=== PATIENT | male | born 1930 | race Caucasian/White ===

== ENCOUNTER 2017-01-21 06:02 | Day surgery (SDC) | payer MEDICARE ==
[2017-01-20 12:07] LABS: EOSINOPHILS 4.2 % (0-7); HEMATOCRIT 40.4 % (42.0-54.0); HEMOGLOBIN 13.2 g/dL (13.5-17.5); IMMATURE GRANULOCYTES 0.2 % (0-5); LYMPHOCYTES 26.4 % (15-50); MCH 30.1 pg (26.0-34.0); MCHC 32.7 g/dL (31.0-37.0); MCV 92.2 fL (80.0-100.0); MEAN PLATELET VOLUME 10.9 fL (7.4-10.4); MONOCYTES 8.1 % (2-11); NEUTROPHILS 60.1 % (40-80); PLATELET COUNT 167 10x3/uL (130-400); RBC 4.38 10x6/uL (4.20-6.10); RDW 13.6 % (11.5-14.5); WBC 6.2 10x3/uL (4.8-10.8)
[2017-01-20 12:16] LABS: APTT 30.3 SECONDS (22.8-39.4)
[2017-01-20 12:17] LABS: INR 1.07 (0.85-1.17); PROTIME 13.7 SECONDS (11.6-15.0)
[2017-01-20 12:19] LABS: ANION GAP 10.4 mmol/L (8-16); CALCIUM 9.7 mg/dL (8.5-10.1); CARBON DIOXIDE 28.9 mmol/L (21.0-32.0); CREATININE - SERUM 1.5 mg/dL (0.6-1.3); POTASSIUM - SERUM 4.3 mmol/L (3.5-5.1)
[~2017-01-21] VITALS: Ht 188 cm; Wt 88.0 kg
[2017-01-21 05:56] VITALS: BP 149/83; Ht 188 cm; Wt 88.0 kg
[~2017-01-21 06:02] MED LIST: ASPIRIN EC81 M1 PO; CARDURA8 MG PO; FISH OIL 1,0001 CA1 PO; KENALOG 0.1 % 115 GM TOPICAL; MULTIPLE VITAMI1 TA1 PO; NORVASC5 MG PO; PRINIVIL20 MG PO; STOOL SOFTENER100 M1 PO; ZOCOR40 MG PO
[2017-01-21] MEDS ORDERED: HYDROCODONE-APA1 TAB PO (09:06)
--- NOTE | 2017-01-21 09:46 | NUR ---
0940 FL DIET SERVED. 0945 NORCO 10MG PO GIVEN FOR C/O PAIN 02/05 AND REQUEST FOR PAIN PILL.
--- NOTE | 2017-01-28 14:52 | OP ---
PATIENT NAME: DAVID STEVEN MEDICAL RECORD: [id number] :[birth year] LOCATION:D.OPS ADMISSION DATE: SURGEON: BRETT EILZALDE MD DATE OF OPERATION: 01/21/2017 PREOPERATIVE DIAGNOSES: 1. 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 2. Peripheral venous insufficiency. 3. Gastroesophageal reflux disease. 4. Hypertension. 5. Hyperlipidemia. 6. Chronic renal failure. 7. Congestive heart failure undifferentiated. POSTOPERATIVE DIAGNOSES: 1. 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 2. Peripheral venous insufficiency. 3. Gastroesophageal reflux disease. 4. Hypertension. 5. Hyperlipidemia. 6. Chronic renal failure. 7. Congestive heart failure undifferentiated. PROCEDURE: Wide local excision of right anterior ankle squamous cell carcinoma. SURGEON: Brett Elizalde MD REPORT OF PROCEDURE: The patient's right lower extremity was prepped and draped in sterile fashion. We marked an area around this squamous cell carcinoma on the anterior right ankle. We made a longitudinal ovoid incision. The incision length was 6 cm. The incision width was 3 cm. We came through the subcutaneous tissues and there was a large vein that was passing underneath the tissue. This was ligated on each end with 3-0 silk ties. We then took the tissue off of the patient's fascia and after marking the specimen, it was sent off for frozen section. The lateral and medial margins were inspected and it showed that the margins were clear of any tumor. We then irrigated out the wound and undermined the tissue in all directions. The tissue had been stretched and held in place during the frozen section with towel clips. At this point, we were able to reapproximate the edges of the incision using vertical mattress 3-0 nylon. Multiple sutures were used and we were able to completely close the incision longitudinally. The wound was then dressed with Betadine ointment, Adaptic, 4 x 4's, and Kerlix. COMPLICATIONS: None. CONDITION: Stable. ANESTHESIA: General endotracheal. BLOOD LOSS: Minimal. TRANSINT:[id number] Voice Confirmation ID: [id number] DOCUMENT ID: [id number] OPERATIVE REPORT [id number] DAVID STEVEN BRETT ELIZALDE MD at 1452 CC: JAVIER BLANKENSHIP MD and SHABBIR MATA MD [id number] DICTATION DATE: 01/21/17917 FANCY STITCHER: 01/21/17 1653 [facility] 01/21/17 [facility] [address] [facility] [place] [address]
== END 2017-01-21 10:55 | disposition home or self-care (01) ==
LOC: D.OPS 06:02
PROVIDERS: Anesthesiology; Surgery
DX: C44.712 Basal cell carcinoma of skin of right lower limb, including hip (principal); I87.2 Venous insufficiency (chronic) (peripheral); K21.9 Gastro-esophageal reflux disease without esophagitis; E78.5 Hyperlipidemia, unspecified; I13.0 Hypertensive heart and chronic kidney disease with heart failure and stage 1 through stage 4 chronic kidney disease, or unspecified chronic kidney disease; N18.9 Chronic kidney disease, unspecified; I50.9 Heart failure, unspecified

== ENCOUNTER 2017-07-16 19:31 | Emergency (ER) | payer MEDICARE ==
[2017-01-21 05:56] VITALS: BMI 24.9
[~2017-07-16 19:31] MED LIST changes: +HYDROCODONE-APA1 TAB PO
== END 2017-07-16 23:25 | disposition home or self-care (01) ==
LOC: D.ER 19:31
DX: L03.115 Cellulitis of right lower limb (principal); D48.7 Neoplasm of uncertain behavior of other specified sites

== ENCOUNTER → 2017-07-30 18:42 | Outpatient (CLI) | payer MEDICARE ==
[2017-01-21 05:56] VITALS: BMI 24.9
[~2017-07-30 18:42] MED LIST changes: +ARICEPT5 MG PO; +DILAUD1MGAMP IV; +HYDROCODON-ACE1 EAC7 PO; +PROSCAR5 MG PO; +VALIUM 2 MG TAB2 MG PO
== END | disposition home or self-care (01) ==
LOC: D.LABREF 18:42
DX: S81.802A Unspecified open wound, left lower leg, initial encounter (principal); X58.XXXA Exposure to other specified factors, initial encounter; Y93.89 Activity, other specified; Y92.029 Unspecified place in mobile home as the place of occurrence of the external cause

== ENCOUNTER 2017-10-17 18:56 | Inpatient (IN) | payer MEDICARE ==
[~2017-10-17] VITALS: Ht 188 cm; Wt 86.2 kg
--- NOTE | ~2017-10-17 | OP ---
PATIENT NAME: DAVID REID MEDICAL RECORD: [id number] :[birth year] LOCATION:D.MS [place] ADMISSION DATE:10/17/17 SURGEON: CUONG SOUZA, DATE OF OPERATION: 10/22/2017 PROCEDURE PERFORMED: Left Humerus intramedullary nail. PREOPERATIVE DIAGNOSIS: Closed left humeral shaft fracture. POSTOPERATIVE DIAGNOSIS: Closed left humeral shaft fracture. INDICATIONS: Mr. Reid is a right hand dominant male that presented to the ER Parminder night after falling and fracturing his left humerus. Inability that he go home and take care of himself, so he was admitted. He is also complaining of hip pain. Subsequent MRIs were done of his hips, which showed some bony abnormalities. We had a elin discussion with him that his left humerus we could brace it and watch it and see if it would heal. During his stay in the hospital, he said he got tired of the humerus not being stable and bothering him, not been able to move without it hurting and said that he wanted it fixed. After having this discussion with him, the risks and benefits of the procedure were explained to him. I explained to him that I try a nail due to his age and the fact that it has smaller incisions and a quicker surgery, generally over the plate and due to his bone quality it may be better, so decided to do a nail. After noting this, he consented to the procedure. SURGEON: Cuong Souza DO COMPLICATIONS: None. BLOOD LOSS: Approximately 50 mL. DESCRIPTION OF THE PROCEDURE: The patient received a block in the preoperative area and taken to the operative suite and laid in supine position, given general anesthetic and Ancef. LMA was placed and the patient was placed in beach chair position. After this was done, the left upper extremity was prepped and draped in sterile fashion. Timeout was performed, everyone was in agreement of correct side, site and patient. After the time-out was performed, incision was made over the acromion laterally. Careful dissection was made down to the deltoid which was split. Fibers were split down to the bursa. The bursa was removed off the rotator cuff and the rotator cuff was encountered. A starting point was then found with starting tracie with a starting wire and the rotator cuff was split in line with the fibers and the starting wire was put down the humerus. The opening reamer was used at that point. Once the opening reamer was used, a long guidewire was placed. A reduction was made which was difficult to hold and we reamed to an 8 which went down very smoothly and decided to put an 8 nail down. We then switched out the guidewire to a smooth guidewire due to the compression device of the Jbphh nail. Once the nail was then put down over that and the reduction was held, a distal locking screw was put in place from the anterior to posterior. A alistair was made in the skin, right over the bicep and it was carefully split with a hemostat down to the anterior humerus and then the guide soft tissue protector was put down on the humerus and perfect circles were made for the drill hole and then the drill was put in through the distal AP hole in the nail. Once this was locked, we went proximally and put in the dynamic slot screw and then the compression screw from the top of the nail was turned and compression was made at the fracture site not getting a perfect reduction; OPERATIVE REPORT [id number] DAVID REID however, the cortices were touching. Once this was done, we then put one more static screw and above the dynamic screw at the proximal part of the humerus. After this was done, x-rays were taken to confirm adequate reduction of the humerus and the most proximal screw was not in the joint and the humeral nail was down below the rotator cuff and below the humerus. Irrigation was then done and the rotator cuff was closed with a ftduvt-cy-ohdcl stitch of #2 Ethibond and a deltoid fascia was then closed with 0 Vicryl and 2 [id number] stitches and skin was closed with 3-0 Vicryl at the longer incision sites and then 4-0 Monocryl was run on the skin there. The other poke holes where the screws were inserted were closed with 4-0 Monocryl distally in a horizontal mattress pattern due to the thin skin and then proximally inverted interrupted and then the arm was cleaned and put in Dermabond over each incision sites and Telfa and Tegaderm were placed over each of the incisions. The arm was then wrapped with an Nomi from the hand up and put in a sling. The patient was awakened and taken to recovery in stable condition. TRANSINT:[id number] Voice Confirmation ID: [id number] DOCUMENT ID: [id number] CUONG SOUZA DO at 1621 CC: [id number] DICTATION DATE: 10/22/17 1554 APPLE PACKING HEADER: 10/22/17 2150 ADM IN [facility] [address] [place] [id number]
[~2017-10-17 18:56] MED LIST changes: -ARICEPT5 MG PO; -DILAUD1MGAMP IV; -HYDROCODON-ACE1 EAC7 PO; -PROSCAR5 MG PO; -VALIUM 2 MG TAB2 MG PO
[2017-10-17 21:25] LABS: BASOPHILS 0.4 % (0-2); EOSINOPHILS 0.6 % (0-7); HEMATOCRIT 40.4 % (42.0-54.0); HEMOGLOBIN 13.3 g/dL (13.5-17.5); IMMATURE GRANULOCYTES 0.3 % (0-5); LYMPHOCYTES 8.6 % (15-50); MCH 30.2 pg (26.0-34.0); MCHC 32.9 g/dL (31.0-37.0); MCV 91.6 fL (80.0-100.0); MEAN PLATELET VOLUME 10.6 fL (7.4-10.4); MONOCYTES 4.3 % (2-11); NEUTROPHILS 85.8 % (40-80); PLATELET COUNT 153 10x3/uL (130-400); RBC 4.41 10x6/uL (4.20-6.10); RDW 13.4 % (11.5-14.5); WBC 10.5 10x3/uL (4.8-10.8)
[2017-10-17 21:33] LABS: ANION GAP 15.1 mmol/L (8-16); CALCIUM 9.6 mg/dL (8.5-10.1); CARBON DIOXIDE 26.5 mmol/L (21.0-32.0); CREATININE - SERUM 1.4 mg/dL (0.6-1.3); POTASSIUM - SERUM 3.6 mmol/L (3.5-5.1)
[2017-10-18 00:06] VITALS: BP 171/98; BMI 24.4
[2017-10-18] MEDS ORDERED: VALIUM 2 MG TAB2 MG PO (00:42)
[2017-10-18] MEDS ORDERED: DILAUD1MGAMP IV (00:44)
[2017-10-18 08:04] VITALS: BP 167/92
[2017-10-18 08:22] LABS: BASOPHILS 0.3 % (0-2); EOSINOPHILS 2.2 % (0-7); HEMATOCRIT 36.7 % (42.0-54.0); HEMOGLOBIN 12.1 g/dL (13.5-17.5); IMMATURE GRANULOCYTES 0.2 % (0-5); LYMPHOCYTES 21.2 % (15-50); MCH 30.1 pg (26.0-34.0); MCV 91.3 fL (80.0-100.0); MEAN PLATELET VOLUME 10.5 fL (7.4-10.4); MONOCYTES 7.5 % (2-11); NEUTROPHILS 68.6 % (40-80); PLATELET COUNT 144 10x3/uL (130-400); RBC 4.02 10x6/uL (4.20-6.10); RDW 13.6 % (11.5-14.5)
[2017-10-18 08:31] LABS: WBC 6.4 10x3/uL (4.8-10.8)
[2017-10-18 08:35] LABS: ALBUMIN 3.1 g/dL (3.4-5.0); ANION GAP 9.8 mmol/L (8-16); BILIRUBIN - TOTAL 0.75 mg/dL (0.2-1.3); CALCIUM 9.3 mg/dL (8.5-10.1); CREATININE - SERUM 1.4 mg/dL (0.6-1.3); MAGNESIUM - SERUM 2.3 mg/dL (1.8-2.4); PHOSPHOROUS 3.5 mg/dL (2.5-4.9); POTASSIUM - SERUM 3.8 mmol/L (3.5-5.1); PROTEIN - SERUM 6.2 g/dL (6.4-8.2)
[2017-10-18 08:38] LABS: APTT 28.5 SECONDS (22.8-39.4); INR 1.11 (0.85-1.17); PROTIME 13.8 SECONDS (11.6-15.0)
[2017-10-18] MEDS ORDERED: ARICEPT5 MG PO (10:12)
[2017-10-18] MEDS ORDERED: PROSCAR5 MG PO (10:13)
[2017-10-18 12:49] VITALS: BMI 24.4
[2017-10-18 14:25] VITALS: Ht 188 cm; Wt 86.2 kg
[2017-10-18 15:39] LABS: C-REACTIVE PROTEIN 0.9 mg/dL (0.0-0.9)
[2017-10-18 15:48] VITALS: BP 137/75
[2017-10-18 16:46] LABS: ERYTHROCYTE SEDIMENTATION RATE 35 mm/hr (0-30)
[2017-10-18 20:00] VITALS: BP 153/91
[2017-10-18 23:53] VITALS: BP 131/83
[2017-10-19 04:00] VITALS: BP 134/74
[2017-10-19 06:27] LABS: BASOPHILS 0.6 % (0-2); EOSINOPHILS 3.2 % (0-7); HEMATOCRIT 34.3 % (42.0-54.0); HEMOGLOBIN 11.3 g/dL (13.5-17.5); IMMATURE GRANULOCYTES 0.1 % (0-5); MCHC 32.9 g/dL (31.0-37.0); MONOCYTES 7.5 % (2-11); NEUTROPHILS 62.6 % (40-80); PLATELET COUNT 146 10x3/uL (130-400); RBC 3.77 10x6/uL (4.20-6.10); RDW 13.8 % (11.5-14.5); WBC 7.2 10x3/uL (4.8-10.8)
[2017-10-19 06:43] LABS: ANION GAP 12.7 mmol/L (8-16); CALCIUM 8.9 mg/dL (8.5-10.1); CARBON DIOXIDE 26.7 mmol/L (21.0-32.0); CREATININE - SERUM 1.5 mg/dL (0.6-1.3); POTASSIUM - SERUM 3.4 mmol/L (3.5-5.1)
[2017-10-19 08:18] VITALS: BP 156/77
[2017-10-19 12:27] VITALS: BP 128/72
[2017-10-19 16:30] VITALS: BP 193/119
[2017-10-19 20:00] VITALS: BP 163/98
[2017-10-20 04:00] VITALS: BP 168/94
[2017-10-20 05:51] LABS: BASOPHILS 0.4 % (0-2); EOSINOPHILS 2.8 % (0-7); HEMATOCRIT 34.5 % (42.0-54.0); HEMOGLOBIN 11.2 g/dL (13.5-17.5); IMMATURE GRANULOCYTES 0.1 % (0-5); LYMPHOCYTES 21.3 % (15-50); MCH 29.9 pg (26.0-34.0); MCHC 32.5 g/dL (31.0-37.0); MEAN PLATELET VOLUME 11.1 fL (7.4-10.4); MONOCYTES 7.6 % (2-11); NEUTROPHILS 67.8 % (40-80); PLATELET COUNT 150 10x3/uL (130-400); RBC 3.75 10x6/uL (4.20-6.10); RDW 13.8 % (11.5-14.5); WBC 8.3 10x3/uL (4.8-10.8)
[2017-10-20 06:15] LABS: ANION GAP 13.1 mmol/L (8-16); CALCIUM 8.7 mg/dL (8.5-10.1); CARBON DIOXIDE 26.3 mmol/L (21.0-32.0); CREATININE - SERUM 1.5 mg/dL (0.6-1.3); POTASSIUM - SERUM 3.4 mmol/L (3.5-5.1)
[2017-10-20 08:33] VITALS: BP 171/82
[2017-10-20 12:08] VITALS: BP 124/68
[2017-10-20 15:40] VITALS: BP 118/64
[2017-10-20 20:00] VITALS: BP 148/79
[2017-10-21 04:55] LABS: BASOPHILS 0.2 % (0-2); EOSINOPHILS 2.5 % (0-7); HEMATOCRIT 32.9 % (42.0-54.0); HEMOGLOBIN 10.6 g/dL (13.5-17.5); IMMATURE GRANULOCYTES 0.1 % (0-5); LYMPHOCYTES 16.8 % (15-50); MCH 29.9 pg (26.0-34.0); MCHC 32.2 g/dL (31.0-37.0); MCV 92.9 fL (80.0-100.0); MEAN PLATELET VOLUME 10.4 fL (7.4-10.4); NEUTROPHILS 75.4 % (40-80); PLATELET COUNT 141 10x3/uL (130-400); RBC 3.54 10x6/uL (4.20-6.10); RDW 13.9 % (11.5-14.5); WBC 8.8 10x3/uL (4.8-10.8)
[2017-10-21 05:12] LABS: ALBUMIN 2.6 g/dL (3.4-5.0); BILIRUBIN - TOTAL 0.72 mg/dL (0.2-1.3); CALCIUM 8.9 mg/dL (8.5-10.1); CARBON DIOXIDE 27.9 mmol/L (21.0-32.0); CREATININE - SERUM 1.4 mg/dL (0.6-1.3); POTASSIUM - SERUM 3.9 mmol/L (3.5-5.1); PROTEIN - SERUM 5.9 g/dL (6.4-8.2)
[2017-10-21 09:29] VITALS: BP 156/79
[2017-10-21 14:18] VITALS: BP 129/56
[2017-10-22 04:00] VITALS: BP 153/85
[2017-10-22 06:17] LABS: BETA-2 MICROGLOBULIN 3.4 mg/L (0.6-2.4)
[2017-10-22 06:56] LABS: BASOPHILS 0.7 % (0-2); EOSINOPHILS 3.9 % (0-7); HEMATOCRIT 34.6 % (42.0-54.0); HEMOGLOBIN 11.1 g/dL (13.5-17.5); IMMATURE GRANULOCYTES 0.3 % (0-5); LYMPHOCYTES 19.9 % (15-50); MCH 29.6 pg (26.0-34.0); MCHC 32.1 g/dL (31.0-37.0); MCV 92.3 fL (80.0-100.0); MONOCYTES 6.4 % (2-11); NEUTROPHILS 68.8 % (40-80); PLATELET COUNT 161 10x3/uL (130-400); RBC 3.75 10x6/uL (4.20-6.10); RDW 13.7 % (11.5-14.5); WBC 7.6 10x3/uL (4.8-10.8)
[2017-10-22 07:12] LABS: SPE - A/G RATIO 1.2 (0.7-1.7); SPE - ALBUMIN 3.2 g/dL (2.9-4.4); SPE - ALPHA-1 GLOBULIN 0.2 g/dL (0.0-0.4); SPE - ALPHA-2 GLOBULIN 0.7 g/dL (0.4-1.0); SPE - BETA GLOBULIN 0.9 g/dL (0.7-1.3); SPE - GAMMA GLOBULIN 0.9 g/dL (0.4-1.8); SPE - M-SPIKE 0.2 g/dL (Not Observed); SPE - TOTAL PROTEIN 5.9 g/dL (6.0-8.5)
[2017-10-22 07:12] LABS: IMMUNOFIXATION Note: (()); IMMUNOGLOBULIN A 286 mg/dL (61-437); IMMUNOGLOBULIN G 820 mg/dL (700-1600); IMMUNOGLOBULIN M 139 mg/dL (15-143)
[2017-10-22 07:22] LABS: ALBUMIN 2.7 g/dL (3.4-5.0); ANION GAP 10.6 mmol/L (8-16); BILIRUBIN - TOTAL 0.56 mg/dL (0.2-1.3); CALCIUM 9.1 mg/dL (8.5-10.1); CREATININE - SERUM 1.3 mg/dL (0.6-1.3); POTASSIUM - SERUM 3.6 mmol/L (3.5-5.1); PROTEIN - SERUM 6.1 g/dL (6.4-8.2)
[2017-10-22 08:26] VITALS: BP 162/78
[2017-10-22 11:56] VITALS: BP 145/82
[2017-10-22 16:41] VITALS: BP 117/65
[2017-10-22 22:57] VITALS: BP 159/84
[2017-10-23 02:03] VITALS: BP 135/78
[2017-10-23 05:26] LABS: BASOPHILS 0.4 % (0-2); EOSINOPHILS 1.4 % (0-7); HEMATOCRIT 33.8 % (42.0-54.0); HEMOGLOBIN 10.9 g/dL (13.5-17.5); IMMATURE GRANULOCYTES 0.1 % (0-5); LYMPHOCYTES 11.7 % (15-50); MCH 29.7 pg (26.0-34.0); MCHC 32.2 g/dL (31.0-37.0); MCV 92.1 fL (80.0-100.0); MEAN PLATELET VOLUME 10.6 fL (7.4-10.4); MONOCYTES 7.1 % (2-11); NEUTROPHILS 79.3 % (40-80); PLATELET COUNT 146 10x3/uL (130-400); RBC 3.67 10x6/uL (4.20-6.10); RDW 13.6 % (11.5-14.5); WBC 7.1 10x3/uL (4.8-10.8)
[2017-10-23 05:50] LABS: ALBUMIN 2.6 g/dL (3.4-5.0); ANION GAP 11.2 mmol/L (8-16); BILIRUBIN - TOTAL 0.6 mg/dL (0.2-1.3); CALCIUM 8.4 mg/dL (8.5-10.1); CARBON DIOXIDE 26.9 mmol/L (21.0-32.0); CREATININE - SERUM 1.3 mg/dL (0.6-1.3); POTASSIUM - SERUM 4.1 mmol/L (3.5-5.1)
[2017-10-23 06:03] VITALS: BP 135/78
[2017-10-23 10:42] VITALS: BP 158/84
[2017-10-23 11:00] VITALS: BP 156/81
[2017-10-23] MEDS ORDERED: HYDROCODON-ACE1 EAC7 PO (16:08)
[2017-10-23 16:23] VITALS: BP 140/76
== END 2017-10-23 18:15 | DRG 478 ==
LOC: D.ER 18:56 → D.MS 23:27
PROVIDERS: Family Medicine; Internal Medicine Hematology & Oncology; Internal Medicine Nephrology; Orthopaedic Surgery; Specialist
PROC: 0QB33ZX Excision of Left Pelvic Bone, Percutaneous Approach, Diagnostic (ICD-10-PCS; 2017-10-20)
PROC: 07DR3ZX Extraction of Iliac Bone Marrow, Percutaneous Approach, Diagnostic (ICD-10-PCS; principal; 2017-10-20 13:00)
PROC: 0PSG36Z Reposition Left Humeral Shaft with Intramedullary Internal Fixation Device, Percutaneous Approach (ICD-10-PCS; 2017-10-22)
DX: S42.302A Unspecified fracture of shaft of humerus, left arm, initial encounter for closed fracture (principal); N17.9 Acute kidney failure, unspecified; S22.089A Unspecified fracture of T11-T12 vertebra, initial encounter for closed fracture; W17.89XA Other fall from one level to another, initial encounter; M25.551 Pain in right hip; I10 Essential (primary) hypertension; E78.5 Hyperlipidemia, unspecified; K21.9 Gastro-esophageal reflux disease without esophagitis; G47.33 Obstructive sleep apnea (adult) (pediatric); D64.9 Anemia, unspecified

== ENCOUNTER 2017-10-23 17:12 | Inpatient (IN) | payer MEDICARE ==
[~2017-10-23] VITALS: Ht 188 cm; Wt 85.7 kg
--- NOTE | ~2017-10-23 | RHP ---
PATIENT: DAVID STEVEN MEDICAL RECORD: [id number] ACCOUNT: [id number] LOCATION:[facility]1112 : [birth year] ADMISSION DATE: 10/23/17 REHABILITATION HISTORY AND PHYSICAL EXAMINATION POST ADMISSION PHYSICIAN EXAMINATION DATE OF ADMISSION: 10/23/2017. ADMITTING DIAGNOSES: Pain secondary to a T12 compression fracture and hip pain secondary to possible multiple myeloma. HISTORY OF PRESENT ILLNESS: The patient is admitted to the inpatient rehab for pain syndrome. He is an 86-year-old gentleman who presented to the ER via EMS with left arm pain after falling off the porch on 10/16/2017. X-rays were done that demonstrated a humeral shaft fracture. He also has right hip pain for months. He stated that he cannot take more than 2 steps without pain. He stated he has seen an orthopedic surgeon in [place] who took x-rays, which did not show any fractures at that time. He has a history of hypertension, hyperlipidemia, gastroesophageal reflux disease, benign prostatic hypertrophy, rheumatic fever as a child. MRI of his right hip showed a mottled marrow signal within the pelvis and proximal femurs, as well as the lower lumbar spine. This can be accounts receivable representative of osteoporosis or marrow infiltrating disorder such as multiple myeloma or severe anemia. He is now seeing an oncologist. He has had a bone marrow aspiration done for further testing. He has also been found to have a compression fracture at T12. He underwent a surgical repair of his humeral fracture on 10/22/2017 after a failed closed reduction. He lives at home with his and was moderately independent with mobility with use of a single point cane and now is set up for moderate to max assist. He definitely needs inpatient rehab to get back to his prior level of functioning and return home. COMORBIDITIES: Include humeral fracture, right hip pain, hypertension, hyperlipidemia, gastroesophageal reflux disease, chronic kidney disease, chronic venous insufficiency, former tobacco smoker, BPH, skin cancers, urinary frequency, falls, right hip pain, normocytic anemia, and acute kidney injury. PAST MEDICAL HISTORY: Significant for cataracts, hard of hearing, trouble swallowing, BPH, arthritis, urinary frequency, former tobacco use, hyperlipidemia, sleep apnea, basal cell skin cancer, chronic kidney disease, heart failure, gastroesophageal reflux disease, and chronic venous insufficiency. PAST SURGICAL HISTORY: Includes cataracts, appendectomy, left inguinal hernia, and left breast mass. ALLERGIES: SULFA. CURRENT MEDICATIONS: Include multivitamin daily, lisinopril 20 mg daily, omega 1 cap daily, finasteride 5 mg daily, Colace 100 mg daily, aspirin chewable 81 mg daily, amlodipine 5 mg daily. He is on simvastatin 40 mg q.h.s., Curtice 5/325 as needed for pain, Cardura 8 mg q.h.s., Aricept 5 mg q.h.s., Valium 1 mg q. 8 hours p.r.n. spasms, and polyethylene glycol 17 grams in 8 ounces of water daily as needed. HABITS: Does have a history of tobacco use. HISTORY AND PHYSICAL [id number] DAVID STEVEN FAMILY HISTORY: Noncontributory. SOCIAL HISTORY: The patient hopes to return back home and get back to his prior level of functioning. REVIEW OF SYSTEMS: GENERAL: Does complain of weakness. HEENT: He denies cold, cough, or congestion. CARDIOVASCULAR: Denies chest pain. PHYSICAL EXAMINATION: VITAL SIGNS: Stable, afebrile. GENERAL: Elderly gentleman in no acute distress, alert upon exam. HEENT: Normocephalic and atraumatic. Mucosa moist. NECK: Supple. No lymphadenopathy. LUNGS: Clear at this time. HEART: Regular rate and rhythm. ABDOMEN: Benign. EXTREMITIES: No clubbing, cyanosis or edema. NEUROLOGIC: Consistent with some slow mentation and some mild dementia. LABORATORY DATA: His white count is 9.2, H&H of 11 and 34, platelet count is 161. His sodium is 142, potassium 3.3, BUN and creatinine of 27 and 1.3, and blood sugar is noted to be 137. ASSESSMENT: This is an 86-year-old gentleman admitted to the rehab with a working diagnosis of pain syndrome secondary to a fracture of the humerus. The patient has potential to make improvement. We instituted the following multidisciplinary therapies to include, but not limited to physical, occupational, respiratory, speech, nutritional services, prosthetics and orthotics. Given his complex condition and risk for more complications, rehabilitation services cannot be provided at a low level of care such as a residential facility. PLAN: 1. Admit to [facility] rehab for intensive inpatient therapy to include the following disciplines: A. Physical therapy to improve gait, all transfer skills and bed mobility to a modified independent level. B. Occupational therapy to improve activities of daily living to a modified independent level. C. Case management to assist with discharge planning and placement options. D. Nutrition to assist with nutritional needs. E. Rehabilitation nursing to assist in monitoring the patient's underlying medical conditions and to assist with any type of bowel or bladder management. 2. The patient's current medication and medical care will be continued. 3. The patient will be placed on standard fall precautions. 4. The patient's length of stay is approximately 7 to 10 days. 5. Discuss this patient during care team staff meeting this week. TRANSINT:[id number] Voice Confirmation ID: [id number] DOCUMENT ID: [id number] MECHELLE notes whether there has been none or any medical/functional HISTORY AND PHYSICAL [id number] DAVID STEVEN change since admission: - No change since prescreen. MECHELLE attests patient continues to be appropriate for IRF: - Continues to be appropriate. JAMAICA MARTE MD at 1522 CC: [id number] DICTATION DATE: 10/24/17828 PROGRAM ENGINEER: 10/24/17 1052 ADM IN [facility] [address] [place] [address]
[~2017-10-23 17:12] MED LIST changes: +ARICEPT5 MG PO; +DILAUD1MGAMP IV; +HYDROCODON-ACE1 EAC7 PO; +PROSCAR5 MG PO; +VALIUM 2 MG TAB2 MG PO
[2017-10-23 20:03] VITALS: BP 180/83
[2017-10-24 05:54] LABS: BASOPHILS 0.2 % (0-2); CALCIUM 8.7 mg/dL (8.5-10.1); CARBON DIOXIDE 26.3 mmol/L (21.0-32.0); CREATININE - SERUM 1.3 mg/dL (0.6-1.3); EOSINOPHILS 1.2 % (0-7); HEMATOCRIT 34.3 % (42.0-54.0); HEMOGLOBIN 11.2 g/dL (13.5-17.5); IMMATURE GRANULOCYTES 0.1 % (0-5); MCH 29.7 pg (26.0-34.0); MCHC 32.7 g/dL (31.0-37.0); MEAN PLATELET VOLUME 10.9 fL (7.4-10.4); MONOCYTES 6.2 % (2-11); NEUTROPHILS 81.3 % (40-80); PLATELET COUNT 161 10x3/uL (130-400); RBC 3.77 10x6/uL (4.20-6.10); RDW 13.4 % (11.5-14.5)
[2017-10-24 05:56] LABS: POTASSIUM - SERUM 3.3 mmol/L (3.5-5.1)
[2017-10-24 05:57] LABS: WBC 9.2 10x3/uL (4.8-10.8)
[2017-10-24 07:44] VITALS: BP 163/84
[2017-10-24 10:32] VITALS: Ht 188 cm; Wt 85.7 kg
[2017-10-24 20:30] VITALS: BP 180/91
[2017-10-25 08:25] VITALS: BP 172/94
[2017-10-25 19:45] VITALS: BP 161/81
[2017-10-26 08:00] VITALS: BP 156/84
[2017-10-26 20:05] VITALS: BP 141/81
[2017-10-27 06:37] LABS: BASOPHILS 0.6 % (0-2); EOSINOPHILS 4.8 % (0-7); HEMATOCRIT 29.9 % (42.0-54.0); HEMOGLOBIN 9.6 g/dL (13.5-17.5); IMMATURE GRANULOCYTES 0.1 % (0-5); LYMPHOCYTES 18.9 % (15-50); MCH 29.3 pg (26.0-34.0); MCHC 32.1 g/dL (31.0-37.0); MCV 91.2 fL (80.0-100.0); MEAN PLATELET VOLUME 10.2 fL (7.4-10.4); MONOCYTES 7.7 % (2-11); NEUTROPHILS 67.9 % (40-80); PLATELET COUNT 189 10x3/uL (130-400); RBC 3.28 10x6/uL (4.20-6.10); RDW 13.6 % (11.5-14.5); WBC 6.7 10x3/uL (4.8-10.8)
[2017-10-27 07:30] LABS: ANION GAP 10.4 mmol/L (8-16); CALCIUM 8.7 mg/dL (8.5-10.1); CARBON DIOXIDE 28.9 mmol/L (21.0-32.0); CREATININE - SERUM 1.2 mg/dL (0.6-1.3); POTASSIUM - SERUM 3.3 mmol/L (3.5-5.1)
[2017-10-27 08:00] VITALS: BP 142/74
[2017-10-27 21:40] VITALS: BP 147/86
[2017-10-28 08:58] VITALS: BP 160/74
[2017-10-28 21:25] VITALS: BP 146/77
[2017-10-29 06:30] LABS: BASOPHILS 0.5 % (0-2); EOSINOPHILS 3.8 % (0-7); HEMOGLOBIN 10.3 g/dL (13.5-17.5); IMMATURE GRANULOCYTES 0.5 % (0-5); LYMPHOCYTES 18.4 % (15-50); MCH 29.5 pg (26.0-34.0); MCHC 32.2 g/dL (31.0-37.0); MCV 91.7 fL (80.0-100.0); MEAN PLATELET VOLUME 10.7 fL (7.4-10.4); MONOCYTES 6.4 % (2-11); NEUTROPHILS 70.4 % (40-80); PLATELET COUNT 224 10x3/uL (130-400); RBC 3.49 10x6/uL (4.20-6.10); RDW 13.8 % (11.5-14.5); WBC 7.9 10x3/uL (4.8-10.8)
[2017-10-29 06:46] LABS: CALCIUM 8.7 mg/dL (8.5-10.1); CARBON DIOXIDE 28.7 mmol/L (21.0-32.0); CREATININE - SERUM 1.3 mg/dL (0.6-1.3); POTASSIUM - SERUM 3.7 mmol/L (3.5-5.1)
[2017-10-29 07:44] VITALS: BP 161/79
[2017-10-29 19:50] VITALS: BP 151/71
[2017-10-30 08:00] VITALS: BP 153/69
[2017-10-30 19:30] VITALS: BP 151/59
[2017-10-31 06:22] LABS: BASOPHILS 0.6 % (0-2); EOSINOPHILS 2.8 % (0-7); HEMATOCRIT 32.2 % (42.0-54.0); HEMOGLOBIN 10.4 g/dL (13.5-17.5); IMMATURE GRANULOCYTES 0.4 % (0-5); LYMPHOCYTES 17.3 % (15-50); MCH 29.7 pg (26.0-34.0); MCHC 32.3 g/dL (31.0-37.0); MEAN PLATELET VOLUME 10.1 fL (7.4-10.4); MONOCYTES 7.8 % (2-11); NEUTROPHILS 71.1 % (40-80); PLATELET COUNT 228 10x3/uL (130-400); RDW 13.9 % (11.5-14.5); WBC 8.4 10x3/uL (4.8-10.8)
[2017-10-31 06:40] LABS: ANION GAP 11.2 mmol/L (8-16); CALCIUM 8.6 mg/dL (8.5-10.1); CARBON DIOXIDE 29.9 mmol/L (21.0-32.0); CREATININE - SERUM 1.3 mg/dL (0.6-1.3); POTASSIUM - SERUM 4.1 mmol/L (3.5-5.1)
[2017-10-31 14:50] VITALS: BP 109/57
[2017-10-31 22:58] VITALS: BP 131/68
[2017-11-01 07:48] VITALS: BP 175/61
[2017-11-02 22:54] VITALS: BP 117/68
[2017-11-03 06:04] LABS: BASOPHILS 0.5 % (0-2); EOSINOPHILS 2.6 % (0-7); HEMATOCRIT 34.9 % (42.0-54.0); HEMOGLOBIN 11.2 g/dL (13.5-17.5); IMMATURE GRANULOCYTES 0.6 % (0-5); LYMPHOCYTES 24.4 % (15-50); MCH 29.6 pg (26.0-34.0); MCHC 32.1 g/dL (31.0-37.0); MCV 92.1 fL (80.0-100.0); MEAN PLATELET VOLUME 10.5 fL (7.4-10.4); MONOCYTES 8.1 % (2-11); NEUTROPHILS 63.8 % (40-80); PLATELET COUNT 263 10x3/uL (130-400); RBC 3.79 10x6/uL (4.20-6.10); RDW 14.1 % (11.5-14.5)
[2017-11-03 06:25] LABS: ANION GAP 15.2 mmol/L (8-16); CALCIUM 8.9 mg/dL (8.5-10.1); CARBON DIOXIDE 26.9 mmol/L (21.0-32.0); CREATININE - SERUM 1.5 mg/dL (0.6-1.3); POTASSIUM - SERUM 4.1 mmol/L (3.5-5.1)
[2017-11-03 20:31] VITALS: BP 138/86
[2017-11-04 08:30] VITALS: BP 156/78
[2017-11-04 21:00] VITALS: BP 127/70
[2017-11-05 06:34] LABS: BASOPHILS 0.6 % (0-2); EOSINOPHILS 2.8 % (0-7); HEMATOCRIT 31.9 % (42.0-54.0); HEMOGLOBIN 10.1 g/dL (13.5-17.5); IMMATURE GRANULOCYTES 0.4 % (0-5); LYMPHOCYTES 20.2 % (15-50); MCH 29.2 pg (26.0-34.0); MCHC 31.7 g/dL (31.0-37.0); MCV 92.2 fL (80.0-100.0); MEAN PLATELET VOLUME 10.2 fL (7.4-10.4); MONOCYTES 6.7 % (2-11); NEUTROPHILS 69.3 % (40-80); PLATELET COUNT 248 10x3/uL (130-400); RBC 3.46 10x6/uL (4.20-6.10); RDW 14.1 % (11.5-14.5); WBC 7.7 10x3/uL (4.8-10.8)
[2017-11-05 07:09] LABS: ANION GAP 12.4 mmol/L (8-16); CALCIUM 8.2 mg/dL (8.5-10.1); CARBON DIOXIDE 27.6 mmol/L (21.0-32.0); CREATININE - SERUM 1.4 mg/dL (0.6-1.3)
[2017-11-05 07:45] VITALS: BP 150/74
[2017-11-05 20:57] VITALS: BP 148/79
[2017-11-06 08:00] VITALS: BP 142/80
== END 2017-11-06 14:45 | disposition home health service (06) | DRG 563 ==
LOC: D.REHAB 17:12
PROVIDERS: Emergency Medicine
DX: S42.302A Unspecified fracture of shaft of humerus, left arm, initial encounter for closed fracture (principal); N17.9 Acute kidney failure, unspecified; M25.551 Pain in right hip; I12.9 Hypertensive chronic kidney disease with stage 1 through stage 4 chronic kidney disease, or unspecified chronic kidney disease; N18.9 Chronic kidney disease, unspecified; K21.9 Gastro-esophageal reflux disease without esophagitis; N40.0 Benign prostatic hyperplasia without lower urinary tract symptoms; W19.XXXA Unspecified fall, initial encounter; E78.5 Hyperlipidemia, unspecified; R35.0 Frequency of micturition; D64.9 Anemia, unspecified; I87.2 Venous insufficiency (chronic) (peripheral); Z87.891 Personal history of nicotine dependence